=== PATIENT | male | born 1960 | race Caucasian/White ===

== ENCOUNTER → 2020-07-12 | Outpatient (CLI) | payer OTHER ==
--- NOTE | 2020-07-12 10:00 | Diagnostic Imaging Report ---
EXAMINATION: Right knee at 9:31 AM INDICATION: Knee pain 3 views were obtained. There are no prior studies available for comparison. There is no fracture, dislocation or acute bony abnormality evident. There is mild degenerative disease involving all 3 compartments of the knee joint. The soft tissues are unremarkable. IMPRESSION: There is no evidence for an acute bony abnormality. Dictated by: Dictated on workstation # [id number]
== END ==
LOC: RAD FS 09:13
PROVIDERS: ATTEND Nurse Practitioner
DX: M25.561 Pain in right knee (principal)
CPT/HCPCS: 73562

== ENCOUNTER → 2020-08-24 | Outpatient (CLI) | payer SELFPAY ==
--- NOTE | 2020-08-24 18:24 | Diagnostic Imaging Report ---
INDICATION: Hyperlipidemia. EXAMINATION: CT cardiac calcium score. Routine images of the heart were obtained. COMPARISON: There is no prior study available for comparison. The total Agatston score is 73.2 (please see attached report). The images through the thorax do show the heart size is within normal limits. Coronary artery calcifications are noted. The aorta is not abnormally dilated. There is no obvious mediastinal or hilar adenopathy. There do appear to be calcified hilar nodes, bilaterally. There is also a 1 cm calcified granuloma in the right lung base. There is another partially calcified nodular density in the left lung base measuring 0.9 cm. There is also a 0.6 cm calcified granuloma in the subpleural region of the left upper lung anteriorly. I suspect that these calcified nodules are benign. However, there is also a 1 cm noncalcified nodule in the posterior aspect of the right lower lobe. Another much smaller 0.5 cm nodule is also seen along the anterior aspect of the right upper lobe. These noncalcified nodules are nonspecific but worrisome for malignancy. I would recommend that a routine CT chest exam with intravenous contrast be performed for further study. The sections through the upper abdomen failed to show any sign of an acute abnormality. The bone windows are unremarkable for a fracture or for a destructive lesion. IMPRESSION: 1. The total Agatston score is 73.2. Please see attached report. 2. There is no acute cardiopulmonary abnormality identified. 3. The noncalcified nodules in the right lung are of uncertain etiology but worrisome for malignancy. Recommendations as above. Dictated by: Dictated on workstation # [id number]
== END ==
LOC: RAD FS 14:44
PROVIDERS: ATTEND Family Medicine
DX: E78.5 Hyperlipidemia, unspecified (principal); R91.1 Solitary pulmonary nodule
CPT/HCPCS: 75571

== ENCOUNTER → 2020-08-27 | Outpatient (CLI) | payer OTHER ==
[~2020-08-27] MED LIST: CATHETER FLUSH 10 ML SYR IV PRN; HOLD METFORMIN - RECEIVED CONTRAST 20 ML VIAL IV SCH; IOHEXOL 350 MG/ML 100 ML (OMNIPAQUE 350) VIAL IV ONE; NS 100 ML (IVPB) BAG IV ONE
[2020-08-27 09:11] LABS: BUN/CREATININE RATIO 18; CARBON DIOXIDE 26 MMOL/L (21-32); CHLORIDE 105 MMOL/L (98-107); CREATININE SERUM 1.06 MG/DL (0.60-1.30); GFR ESTIMATED > 60; GLUCOSE 122 MG/DL (70-105); POTASSIUM 4.4 MMOL/L (3.6-5.0); SODIUM 140 MMOL/L (135-145)
[2020-08-27 09:12] LABS: CALCIUM 9.5 MG/DL (8.5-10.1)
--- NOTE | 2020-08-27 10:04 | Diagnostic Imaging Report ---
PROCEDURE: CT chest with contrast only. TECHNIQUE: Multiple contiguous axial images were obtained through the chest after administration of intravenous contrast. Auto Exposure Controls were utilized during the CT exam to meet ALARA standards for radiation dose reduction. INDICATION: Further evaluation of pulmonary nodules. COMPARISON: Coronary artery CT performed on 08/24/2020. FINDINGS: TRACHEA AND MAIN BRONCHI: Patent without evidence of tracheal or endobronchial lesion. LUNGS AND PLEURA: There is a 2 mm subpleural nodule in the right lung apex (image 30 series 5). There is a subpleural calcified granuloma in the anterior aspect of the left upper lobe (image 59 series 5). There is a 4 mm average diameter noncalcified nodule in the right upper lobe (image 65 series 5). There is a 10 mm average diameter nodule with smooth lobulated margins and partial calcification in the posterior aspect of the right lower lobe (image 104 series 5). Punctate micronodules are demonstrated immediately inferior to this (image 108 series 5). There is a partially calcified granuloma in the lateral basal segment of the left lower lobe (image 104 series 5). There is also a partially calcified granuloma in the lateral basal segment of the right lower lobe along the hemidiaphragm (image 118 series 5). Just medial to this is a 4 mm average diameter noncalcified subpleural nodule along the hemidiaphragm (image 117 series 5). In the medial basal segment of the right lower lobe there is a 5 mm average diameter groundglass nodule (image 117 series 5). No pleural effusion or pneumothorax. MEDIASTINUM AND GOLDY: The visualized thyroid gland is unremarkable. Also mediastinal and hilar lymph nodes are compatible with prior granulomatous disease. Esophagus is nondistended. HEART AND VESSELS: Heart is normal in size. No pericardial effusion. Mild coronary artery calcification. Thoracic aorta is nonaneurysmal. DIAPHRAGM AND UPPER ABDOMEN: Unremarkable. CHEST WALL: Unremarkable. BONES: Mild degenerative changes involve the spine. No acute osseous abnormality. IMPRESSION: No acute cardiopulmonary process. Multiple bilateral calcified granulomas and calcified mediastinal/hilar lymph nodes are compatible with prior granulomatous disease. The previously described pulmonary nodule in the right lower lobe does demonstrate partial calcification and is felt to represent a partially calcified granuloma. Additional scattered noncalcified nodules measuring up to 5 mm may also reflect noncalcified granulomas and are of low suspicion. A subpleural groundglass nodule in the medial basal segment of the right middle lobe may also be a forming granuloma. Consideration can be given to follow-up chest CT in 6-12 months to evaluate stability of these findings. Dictated by: Dictated on workstation # [id number]
== END ==
LOC: RAD FS 08:38
PROVIDERS: ATTEND Family Medicine
DX: Z12.5 Encounter for screening for malignant neoplasm of prostate (principal); Z01.89 Encounter for other specified special examinations; R91.8 Other nonspecific abnormal finding of lung field
CPT/HCPCS: 36415; 71260; 80048; G0103; 84153

== ENCOUNTER → 2021-05-02 | Outpatient (CLI) | payer BC ==
[~2021-05-02] MED LIST changes: +ASPI-999 PO; +ATOR20TA66 PO; +BUSP10TA95 PO; -CATHETER FLUSH 10 ML SYR IV PRN; -HOLD METFORMIN - RECEIVED CONTRAST 20 ML VIAL IV SCH; -IOHEXOL 350 MG/ML 100 ML (OMNIPAQUE 350) VIAL IV ONE; -NS 100 ML (IVPB) BAG IV ONE
== END ==
LOC: ORTHO 15:00
PROVIDERS: ATTEND Orthopaedic Surgery
DX: S83.241A Other tear of medial meniscus, current injury, right knee, initial encounter (principal); E78.5 Hyperlipidemia, unspecified; F41.9 Anxiety disorder, unspecified; X58.XXXA Exposure to other specified factors, initial encounter

== ENCOUNTER 2021-05-06 05:47 | Outpatient (CLI) | payer BC ==
[~2021-05-06] VITALS: Ht 185.4 cm; Wt 105.2 kg
[2021-05-06] MEDS ORDERED: ASPI-999 PO (11:14)
[2021-05-06] MEDS ORDERED: ATOR20TA66 PO (11:14)
[2021-05-06] MEDS ORDERED: BUSP10TA95 PO (11:14)
== END 2021-05-06 14:29 | disposition home or self-care (01) ==
LOC: PREOP 05:47
PROVIDERS: ATTEND Surgery
DX: Z01.818 Encounter for other preprocedural examination (principal)

== ENCOUNTER 2021-05-13 06:52 | Day surgery (SDC) | payer BC ==
[~2021-05-13] VITALS: Ht 185.4 cm; Wt 105.2 kg
--- OUTSIDE RECORDS SUMMARY | 2021-05-13 06:55 | XMS REPORT | Clinical Summary ---
Demographics Home Phone Preferred Language [place] Marital Status Anglican Affiliation 1041 Race White Ethnic Group Not or Author Author [facility] Address Unknown Phone Unavailable Care Team Providers Care Software Test And Validation Engineer Name Role Phone PP Unavailable Allergies Not on File Medications Not on file Active Problems Not on file Social History Date Tobacco Use Types Packs/Day Years Used Never Assessed Sex Assigned at Date Recorded Not on file Plan of Treatment Not on file Results Not on filefrom Last 3 Months
--- OUTSIDE RECORDS SUMMARY | 2021-05-13 06:55 | XMS REPORT | Clinical Summary ---
Author Author [facility] Address Unknown Phone Unavailable Care Team Providers Care Service Attendant Name Role Phone Petty Monroy DRILLING FOREMAN Unavailable Allergies No known active allergies Medications End Date Status Medication Sig Dispensed Refills Start Date Active Calcium Carbonate Antacid chew 1 tablet 0 0 (TUMS ULTRA 1000) 1000 MG as need for 3 CHEW heartburn-per pt Active aspirin 81 MG tablet take 1 tablet 0 (81MG) by 3 oral route every day Active famotidine (PEPCID) 20 MG Take 20 mg by 0 tablet mouth daily. Active polyethylene glycol Drink 1 glass 4000 mL 0 05/2 (GOLYTELY,NULYTELY) 236 G by mouth 6 suspensionIndications: every 20-30 History of colon polyps minutes until gone as directed by GI center. Active atorvastatin (LIPITOR) 20 Take 1 tablet 90 tablet 1 MG tabletIndications: (20 mg total) 6 Other and unspecified by mouth hyperlipidemia daily. Active Problems Problem Noted Date Prediabetes Pure hypercholesterolemia Family History Medical History Relation Name Comments Diabetes Brother Elevated Lipids Brother Hypertension Brother Elevated Lipids Brother Hypertension Brother Cancer Father melanoma Elevated Lipids Father Cancer Mother ovarian Diabetes Mother Elevated Lipids Sister Hypertension Sister Relation Name Status Comments Brother Alive Brother Alive Father Mother Alive Sister Alive Social History Date Tobacco Use Types Packs/Day Years Used Quit: 09/27/1985 Former Smoker Cigarettes 1 4 Comments Alcohol Use Standard Drinks/Week No 0 (1 standard drink = 0.6 o z pure alcohol) Sex Assigned at Date Recorded Not on file Last Filed Vital Signs Reading Time Taken Comments Vital Sign 122/84 11/12/2015 10:41 AM CDT Blood Pressure 76 11/12/2015 10:41 AM CDT Pulse 36.7 C (98 F) 11/12/2015 8:48 AM CDT Temperature 18 11/12/2015 10:41 AM CDT Respiratory Rate 98% 11/12/2015 10:41 AM CDT Oxygen Saturation - - Inhaled Oxygen Concentration 102.1 kg (225 lb) 11/12/2015 8:48 AM CDT Weight 185.4 cm (6' 1") 11/12/2015 8:48 AM CDT Height 29.69 11/12/2015 8:48 AM CDT Body Mass Index Plan of Treatment Health Maintenance Due Date Last Done Comments COVID-19 Vaccine (1) 1973 DTaP,Tdap,and Td Vaccines 02/29/1980 (1 - Tdap) MMR Vaccines-Adult 02/29/1980 Zoster Vaccine (1 of 2) 2011 Colon Cancer 11/11/2020 11/12/2015, Screening-High Risk 09/13/2010 Influenza Vaccine (#1) 2021 Pneumo-Vaccine: 65+Yrs (1 2026 of 1 - PPSV23) Hepatitis C Screening Completed 11/21/2008 HIB Vaccines Aged Out No longer eligible based on patient's age to complete this topic IPV Vaccines Aged Out No longer eligible based on patient's age to complete this topic Meningococcal Vaccine Aged Out No longer eligib le based on patient's age to complete this topic Pneumo-Vaccine: Peds (0-5 Aged Out No longer el igible based on patient's age to Yrs) & At-Risk Patients complete this topic (6-64 Yrs) Rotavirus Vaccines Aged Out No longer eligible based on patient's age to complete this topic Results Not on filefrom Last 3 Months Insurance Type Payer Benefit Subscriber ID Effective Phone Address Plan / Dates Group WORK COMP [employer] WORK COMP [id number] 2014-P [address] [place] [address] [place] [address] PPO BCBS BCBS BLUE [id number] 2015-P [address] [facility] [address] Advance Directives For more information, please contact: [phone] Patient Barrel Rifler Button Explanation Type Date Recorded Advance Directives and Living Will Power of Research Technologist Care Teams Start Date End Date Service Attendant Relationship Specialty 11/23/13 Petty Monroy, DRILLING FOREMAN Family Medicine [email or web address]
--- OUTSIDE RECORDS SUMMARY | 2021-05-13 06:55 | XMS REPORT | Clinical Summary ---
Author Author [facility] Address Unknown Phone Unavailable Care Team Providers Care Dock Coordinator Name Role Phone None, Pcp MD PCP Unavailable Source Comments [facility] (Labor and Delivery) documents do not appear in the [facility] Allergies Not on File Medications Please verify current medications with patient. Not on file Active Problems Not on file Social History Date Tobacco Use Types Packs/Day Years Used Never Assessed Sex Assigned at Date Recorded Not on file Last Filed Vital Signs Not on file Plan of Treatment Health Maintenance Due Date Last Done Comments CT Colonography 1961 Colonoscopy 1961 Colorectal Cancer 1960 Screening DNA-based stool test 1961 (Cologuard) Lipid Panel 1961 Sigmoidoscopy 1961 gFOBT or FIT 1961 COVID-19 Vaccine (1) 1973 Influenza Vaccine (#1) 2021 Pneumococcal Vaccine: 65+ 2026 Years (1 of 1 - PPSV23) HPV Vaccine Aged Out No longer eligible based on patient's age to complete this topic Hepatitis A Vaccine Aged Out No longer eligible based on patient's age to complete this topic Hepatitis B Vaccine Aged Out No longer eligible based on patient's age to complete this topic Hib Vaccine Aged Out No longer eligible based on patient's age to complete this topic IPV Vaccine Aged Out No longer eligible based on patient's age to complete this topic Meningococcal Vaccine Aged Out No longer eligib le based on patient's age to (MCV4) complete this topic Pneumococcal Vaccine: Aged Out No longer eligib le based on patient's age to Pediatrics (0 to 5 Years) complete this topic and At-Risk Patients (6 to 64 Years) Rotavirus Vaccine Aged Out No longer eligible based on patient's age to complete this topic Results Not on filefrom Last 3 Months Insurance Type Payer Benefit Subscriber ID Effective Phone Address Plan / Dates Group [employer] [id number] Effective [address] [place] [address] 9 Tavares Pratt Personal/F Self 1960 [id number] (Home) [place] [id number] Advance Directives Patient Delivery Helper Explanation Type Date Recorded Living Will 04/25/2015 8:34 AM Care Teams Start Date End Date Dock Coordinator Relationship Specialty 05/19/13 None, Pcp, MD PCP - General Other or Unknown Specialty
[2021-05-13] MEDS ORDERED: LACTATED RINGERS 1,000 ML IV STA (06:57)
[2021-05-13] MEDS ORDERED: LACTATED RINGERS 1,000 ML IV ONE (07:01)
[2021-05-13] MEDS ORDERED: MIDAZOLAM 2 MG/2 ML (VERSED) VIAL ONE (07:14)
[2021-05-13] MEDS ORDERED: PROPOFOL INJECTION 50 ML IV ONE (07:14)
[2021-05-13 07:18] VITALS: BP 134/89
--- NOTE | 2021-05-13 07:52 | Progress Note-Pre Operative ---
Pre-Operative Progress Note H&P Reviewed The H&P was reviewed, patient examined and no changes noted. Date Seen by Provider: May 13, 2021 Time Seen by Provider: 07:51 Date H&P Reviewed: May 13, 2021 Time H&P Reviewed: 07:51 Pre-Operative Diagnosis: hx polyps SAMANTA ANDERSON DO May 13, 2021 07:52
[2021-05-13 08:20] VITALS: BP 112/62
[2021-05-13 08:24] VITALS: BP 111/64
[2021-05-13 08:29] VITALS: BP 112/62
[2021-05-13 08:30] VITALS: BP 112/67
[2021-05-13 09:00] VITALS: BP 114/84
--- NOTE | 2021-05-13 11:37 | Anesthesia-General Post-Op ---
MAC Patient Condition Mental Status/LOC: Same as Preop Cardiovascular: Satisfactory Nausea/Vomiting: Absent Respiratory: Satisfactory Pain: Controlled Complications: Absent Post Op Complications Complications None Follow Up Care/Instructions Patient Instructions None needed. Anesthesiology Discharge Order Discharge Order Patient is doing well, no complaints, stable vital signs, no apparent adverse anesthesia problems. No complications reported per nursing. JONH JULIAN CRNA May 13, 2021 11:37
--- NOTE | 2021-05-13 13:55 | OPERATIVE REPORT ---
DATE OF SERVICE: 05/13/2021 PREOPERATIVE DIAGNOSIS: History of colon polyps. POSTOPERATIVE DIAGNOSIS: Colon polyps x2. PROCEDURE: Colonoscopy with hot biopsy polypectomy x2. SURGEON: Samanta Aaron DO ANESTHESIA: Per PLISSE MACHINE OPERATOR HELPER. ESTIMATED BLOOD LOSS: None. COMPLICATIONS: None. INDICATIONS: The patient is a 61-year-old male needing screening colonoscopy. He understands risks and benefits of procedure and wishes to proceed. Consent was signed in the chart. DESCRIPTION OF PROCEDURE: The patient was taken to the endoscopy suite, placed in left lateral recumbent position. Timeout was performed. A digital rectal exam was performed. No palpable polyps, masses or ulcerations. Scope was inserted in the rectum and advanced all the way to cecum with minimal difficulty. Prep was adequate. Scope was then slowly retracted back. No polyps, masses or ulcerations within the cecum, ascending and transverse colon. In the descending colon, two small polyps were present, which hot biopsy polypectomy was performed. Scope was continuously retracted back through the sigmoid without any other pathology. Scope once in the rectum was retroflexed noting no other pathology. Scope was returned to its normal position, slowly withdrawn until completely removed. The patient tolerated procedure well without any complications, taken to recovery room in stable condition. RECOMMENDATIONS: The patient will follow up on pathology in approximately 2 weeks. The patient will need repeat colonoscopy in 5 years. Any issues before that be seen at that time. Job ID: [id number] DocumentID: [id number] Dictated Date: 05/13/2021 09:30:52 Dip [place] Date: 05/13/2021 13:52:42 Dictated By: SAMANTA AARON DO
== END 2021-05-13 09:00 | disposition home or self-care (01) ==
LOC: ENDO 06:52
PROVIDERS: ATTEND Surgery
DX: Z12.11 Encounter for screening for malignant neoplasm of colon (principal); K63.5 Polyp of colon; E11.9 Type 2 diabetes mellitus without complications; Z79.82 Long term (current) use of aspirin; Z79.899 Other long term (current) drug therapy; Z83.3 Family history of diabetes mellitus; Z80.9 Family history of malignant neoplasm, unspecified
CPT/HCPCS: 88305

== ENCOUNTER → 2021-05-17 | Outpatient (CLI) | payer BC ==
[~2021-05-17] MED LIST changes: +CATHETER FLUSH 10 ML SYR IV PRN; +HOLD METFORMIN - RECEIVED CONTRAST 20 ML VIAL IV SCH; +IOHEXOL 350 MG/ML 100 ML (OMNIPAQUE 350) VIAL IV ONE; +NS 100 ML (IVPB) BAG IV ONE
--- NOTE | 2021-05-17 09:08 | Diagnostic Imaging Report ---
EXAMINATION: CT chest with intravenous contrast. TECHNIQUE: Multiple contiguous axial images were obtained through the chest after the uneventful administration of intravenous contrast. All CT scans use one or more of the following dose optimizing techniques: automated exposure control, MA and/or KvP adjustment based on patient size and exam type or iterative reconstruction. HISTORY: Lung nodule COMPARISON: 08/27/2020 FINDINGS: There is no edema or pneumonia. No pleural effusion. No pneumothorax. There are stable calcified granulomas. There are also a few stable 3 to 5 mm noncalcified nodules. These are all likely due to prior granulomatous infection. There is no axillary or supraclavicular lymphadenopathy. There is no mediastinal lymphadenopathy. There are calcified mediastinal and hilar lymph nodes. Heart size is normal. There are mild coronary artery calcifications. No pericardial effusion. Aorta is normal in caliber. Limited views of the upper abdomen are unremarkable. There are no suspicious osseus lesions. IMPRESSION: 1. Stable calcified and noncalcified nodules, likely due to prior granulomatous infection. No specific follow-up needed. Dictated by: Dictated on workstation # [id number]
== END ==
LOC: RAD FS 08:04
PROVIDERS: ATTEND Registered Nurse Emergency
DX: R91.8 Other nonspecific abnormal finding of lung field (principal)
CPT/HCPCS: 71260

== ENCOUNTER → 2021-07-05 | Outpatient (CLI) | payer BC ==
[~2021-07-05] MED LIST changes: -CATHETER FLUSH 10 ML SYR IV PRN; -HOLD METFORMIN - RECEIVED CONTRAST 20 ML VIAL IV SCH; -IOHEXOL 350 MG/ML 100 ML (OMNIPAQUE 350) VIAL IV ONE; -NS 100 ML (IVPB) BAG IV ONE
--- NOTE | 2021-07-05 11:59 | Diagnostic Imaging Report ---
PROCEDURE: MRI right joint lower extremity without contrast. TECHNIQUE: Multiplanar, multisequence non contrast-enhanced MRI of the right lower extremity was accomplished. INDICATION: Chronic right knee pain COMPARISON: Radiograph from 07/12/2020 FINDINGS: No acute fracture is seen in the right knee. Alignment is normal. There are subcortical cystlike changes and edema at the patella which are degenerative. There is a small right knee joint effusion. There articular cartilage in the patellofemoral compartment demonstrates surface irregularity with small partial thickness fissures. The articular cartilage in the medial compartment demonstrates full-thickness cartilage loss at the weightbearing medial femoral condyle with heterogeneity and irregularity of the medial tibial plateau. The cartilage in the lateral compartment demonstrates a small near full-thickness defect at the lateral femoral condyle measuring 3 mm wide. There is a horizontal tearing of the posterior horn and body of the medial meniscus. The lateral meniscus demonstrates a small radial tear at the free edge of the body. The anterior and posterior cruciate ligaments are intact. The medial collateral ligament is intact. The lateral collateral ligamentous complex is intact. The extensor mechanism is intact. The medial and lateral retinacula are intact. Soft tissues about the right knee demonstrate no acute abnormality. There is a small Pendleton's cyst. IMPRESSION: 1. Horizontal tearing of the medial meniscus in the right knee. Small tear of the free edge of the lateral meniscus body. 2. Moderate cartilage loss in the right knee, most pronounced in the medial compartment. 3. Small right knee joint effusion with a small Pendleton's cyst. Dictated by: Dictated on workstation # [id number]
== END ==
LOC: RAD 09:40
PROVIDERS: ATTEND Orthopaedic Surgery
DX: S83.241A Other tear of medial meniscus, current injury, right knee, initial encounter (principal); S83.281A Other tear of lateral meniscus, current injury, right knee, initial encounter; M71.21 Synovial cyst of popliteal space [Baker], right knee; M25.461 Effusion, right knee; X58.XXXA Exposure to other specified factors, initial encounter
CPT/HCPCS: 73721

== ENCOUNTER → 2021-07-16 | Outpatient (CLI) | payer BC | LOC: ORTHO 09:12 | PROVIDERS: ATTEND Orthopaedic Surgery | DX: S83.241A Other tear of medial meniscus, current injury, right knee, initial encounter (principal); X58.XXXA Exposure to other specified factors, initial encounter | CPT/HCPCS: 99213 ==

== ENCOUNTER 2021-07-29 05:40 | Outpatient (CLI) | payer BC ==
[~2021-07-29] VITALS: Ht 185.5 cm; Wt 105.2 kg
== END 2021-07-31 09:47 | disposition home or self-care (01) ==
LOC: PREOP 05:40
PROVIDERS: ATTEND Orthopaedic Surgery
DX: Z01.818 Encounter for other preprocedural examination (principal)

== ENCOUNTER 2021-08-05 06:33 | Day surgery (SDC) | payer BC ==
[~2021-08-05] VITALS: Ht 185 cm; Wt 105.2 kg
[2021-08-05] VITALS (9 sets, daily range): BP systolic 90–138; BP diastolic 64–90
[2021-08-05] MEDS ORDERED: ceFAZolin 2 GM IV Premixed 50 ML IV ONE (06:45)
[2021-08-05] MEDS ORDERED: LACTATED RINGERS 1,000 ML IV PRN (06:45)
[2021-08-05] MEDS ORDERED: BUPIVACAINE 0.25% 30 ML (SENSORCAINE) VIAL ONE (06:52)
[2021-08-05] MEDS ORDERED: LIDOCAINE/EPI 2% 1:100,00 (XYLOCAINE) 20 ML VIAL ONE (06:52)
--- NOTE | 2021-08-05 07:13 | Progress Note-Pre Operative ---
Pre-Operative Progress Note H&P Reviewed The H&P was reviewed, patient examined and no changes noted. Date Seen by Provider: Aug 05, 2021 Time Seen by Provider: 07:05 Date H&P Reviewed: Aug 05, 2021 Time H&P Reviewed: 07:05 Pre-Operative Diagnosis: Right Knee Medial Meniscus Tear SURESH CHAVEZ MD Aug 05, 2021 07:13
[2021-08-05] MEDS ORDERED: fentaNYL INJ 100 MCG/2 ML AMP ONE (08:09)
[2021-08-05] MEDS ORDERED: MIDAZOLAM 2 MG/2 ML (VERSED) VIAL ONE (08:09)
[2021-08-05] MEDS ORDERED: ONDANSETRON 4 MG/2 ML (SDV) Z0FRAN ONE (08:34)
[2021-08-05] MEDS ORDERED: LIDOCAINE PF 2% 5 ML (XYLOCAINE) VIAL ONE (08:34)
[2021-08-05] MEDS ORDERED: proPOfol 200 MG/20 ML (DIPRIVAN) VIAL IV ONE (08:34)
[2021-08-05] MEDS ORDERED: SEVOFLURANE (ULTANE) 15 ML INHAL SOLN ONE (08:47)
--- NOTE | 2021-08-05 09:06 | Operative Report - Ortho ---
Operative Report Surgeon (s)/Spa Concierge (s) Surgeon SURESH CHAVEZ MD Spa Concierge n/a Pre-Operative Diagnosis Right Knee Medial Meniscus Tear Post-Operative Diagnosis same Operative Report Date of Procedure: Aug 05, 2021 Name of Procedure Performed: Right Knee Arthroscopy with Partial Medial Meniscectomy Description & Findings After obtaining informed consent and marking the patient in the preoperative holding area, the patient was administered IV antibiotics and taken to the operating room. General anesthesia was induced. The left leg was placed in the well leg burkett and the right leg was placed in the arthroscopic burkett. Surgical timeout was taken. The right lower extremity was prepped and draped in the usual sterile fashion. An anterolateral portal was established and a diagnostic knee arthroscopy was performed with the following findings: the patellofemoral portion of the joint demonstrated grade II change, the patella tracked well through the trochlear groove, the gutters had a few cartilaginous loose bodies, there was a posterior honr medial meniscus tear that extended towards the junction with the body of the meniscus, grade II to focal grade III change in the medial compartment, ACL was intact, lateral compartment with intact meniscus and articular cartilage. An anteromedial portal was established. Probe was inserted and the meniscal tear was explored. Shaver was inserted and the meniscal tear was debrided to a stable border. Basket biters were inserted and further debridement of the meniscus was performed. Shaver was then used to fine tune the area of the meniscectomy. A small area of loose articular cartilage was removed with the shaver. Probe was reinserted and confirmed that the mensicectomy was stable. Instruments were withdrawn. Wounds were closed with 3-0 nylon and dressed with xeroform, 4x4s, ABD, cast padding, and ADAN wrap. Patient tolerated the procedure well and was stable to the recovery room. Anesthesia Type General Estimated Blood Loss minimal Specimen(s) collected/removed None SUERSH CHAVEZ MD Aug 05, 2021 09:06
[2021-08-05] MEDS ORDERED: OXC5T PO (09:08)
--- NOTE | 2021-08-05 09:08 | Anesthesia-General Post-Op ---
General Patient Condition Mental Status/LOC: Same as Preop Cardiovascular: Satisfactory Nausea/Vomiting: Absent Respiratory: Satisfactory Pain: Controlled Complications: Absent Post Op Complications Complications None Follow Up Care/Instructions Patient Instructions None needed. Anesthesia/Patient Condition Patient Condition Patient is doing well, no complaints, stable vital signs, no apparent adverse anesthesia problems. No complications reported per nursing. EVELIN MORGAN CRNA Aug 05, 2021 09:08
[2021-08-05] MEDS ORDERED: ONDANSETRON 4 MG/2 ML (SDV) Z0FRAN IVP PRN (09:15)
[2021-08-05] MEDS ORDERED: fentaNYL INJ 100 MCG/2 ML AMP IVP ONE (09:15)
[2021-08-05] MEDS ORDERED: morphine INJ 10 MG/ML 1ML (SYR OR VIAL) IVP ONE (09:15)
== END 2021-08-05 10:30 | disposition home or self-care (01) ==
LOC: SDC 06:33
PROVIDERS: ATTEND Orthopaedic Surgery
DX: S83.241A Other tear of medial meniscus, current injury, right knee, initial encounter (principal); Z79.82 Long term (current) use of aspirin
CPT/HCPCS: 87081

== ENCOUNTER → 2021-08-15 | Outpatient (CLI) | payer BC ==
[~2021-08-15] MED LIST changes: +OXC5T PO
== END ==
LOC: ORTHO 13:25
PROVIDERS: ATTEND Orthopaedic Surgery
DX: Z47.89 Encounter for other orthopedic aftercare (principal)

== ENCOUNTER → 2021-09-19 | Outpatient (CLI) | payer BC | LOC: ORTHO 13:58 | PROVIDERS: ATTEND Orthopaedic Surgery | DX: Z47.89 Encounter for other orthopedic aftercare (principal); Z98.890 Other specified postprocedural states ==

== ENCOUNTER → 2021-10-17 | Outpatient (CLI) | payer BC | LOC: ORTHO 13:25 | PROVIDERS: ATTEND Orthopaedic Surgery | DX: Z47.89 Encounter for other orthopedic aftercare (principal) ==